=== PATIENT | male | born 1950 | race African-American/Black ===

== ENCOUNTER → 2018-05-07 | Outpatient (CLI) | payer MEDICARE, OTHER ==
--- NOTE | 2018-05-07 12:57 | RAD ---
RENAL COMPLETE BILATERAL History: History kidney stone Comparison: None. Findings: Multiple sonographic images of the kidneys and urinary bladder are submitted. Right kidney measured 11.8 x 5.9 x 5.7 cm. Left kidney measured 10.3 x 5 x 5.6 cm. There is no hydronephrosis of either kidney. There are a few small echogenic foci of the right kidney likely due to small calcifications, largest about 0.6 cm. Urinary bladder is not well distended. Impression: 1. There are likely small right renal calculi, no hydronephrosis. Electronically signed by: Fran Khan MD (05/07/2018 12:54 PM) [facility] [id number]
== END | disposition home or self-care (01) ==
LOC: US 11:00
PROVIDERS: ATTEND Family Medicine
DX: N20.0 Calculus of kidney (principal)
CPT/HCPCS: 76770

== ENCOUNTER → 2019-02-17 | Outpatient (CLI) | payer MEDICARE, OTHER ==
[~2019-02-17] MED LIST: 0.9 % SODIUM CHLORIDE 10 ML VIAL ONE; ASPI81TA50 PO; CHOL400C2 PO; EZET10TA20 PO; HYDR-2145 PO; IOHEXOL 300 MG/ML 50 ML VIAL. ONE; LIDOCAINE 1% PF 30 ML VIAL. ONE; LISI-334 PO; METO-239 PO; NIFE-11 PO; OMEP20TA8 PO; POTA20TA4 PO; SIMV20TA18 PO; methylPREDNISolone ACETATE 80 MG/ML VIAL. ONE
[2019-02-17 13:59] VITALS: BP 156/78
== END ==
LOC: SURG 11:35
PROVIDERS: ATTEND Anesthesiology Pain Medicine
DX: M54.16 Radiculopathy, lumbar region (principal); I10 Essential (primary) hypertension
CPT/HCPCS: 62323; J1040; J2001; Q9967

== ENCOUNTER → 2019-04-02 | Outpatient (CLI) | payer MEDICARE, OTHER ==
[2019-04-02 10:43] VITALS: BP 137/84
== END ==
LOC: SURG 10:26
PROVIDERS: ATTEND Anesthesiology Pain Medicine
DX: M47.816 Spondylosis without myelopathy or radiculopathy, lumbar region (principal); G89.4 Chronic pain syndrome; M51.36 Other intervertebral disc degeneration, lumbar region; Z79.01 Long term (current) use of anticoagulants
CPT/HCPCS: 62323; J1040; J2001; Q9967

== ENCOUNTER → 2019-05-07 | Outpatient (CLI) | payer MEDICARE, OTHER ==
[~2019-05-07] MED LIST changes: -0.9 % SODIUM CHLORIDE 10 ML VIAL ONE; -IOHEXOL 300 MG/ML 50 ML VIAL. ONE; -LIDOCAINE 1% PF 30 ML VIAL. ONE; -methylPREDNISolone ACETATE 80 MG/ML VIAL. ONE
[2019-05-07 14:02] VITALS: BP 113/59
== END | disposition home or self-care (01) ==
LOC: SURG 13:52
PROVIDERS: ATTEND Anesthesiology Pain Medicine
DX: M47.26 Other spondylosis with radiculopathy, lumbar region (principal); M51.16 Intervertebral disc disorders with radiculopathy, lumbar region; Z79.01 Long term (current) use of anticoagulants
CPT/HCPCS: 99213; G0463

== ENCOUNTER 2021-01-08 12:06 | Emergency (ER) | payer MEDICARE, OTHER ==
[~2021-01-08] VITALS: Ht 182.9 cm; Wt 104.7 kg
[~2021-01-08 12:06] MED LIST changes: -LISI-334 PO; +LISI20TA18 PO; +POTA-121 PO; -POTA20TA4 PO
[2021-01-08] MEDS ORDERED: ASPIRIN CHEWABLE 81 MG TABLET. PO ONE (12:30)
[2021-01-08] MEDS ORDERED: IV NORMAL SALINE 1,000ML 1,000 ML IV ONE (12:30)
--- NOTE | 2021-01-08 12:30 | EKG ---
[address] [address] Test Date: 2021-01-08 Test Time: 12:13:52 Pat Name: ELEANOR BAUER Department: Room: Gender: Toll Ticket Clerk: DIONY : 1950 Requested By: MARIANN BARNHART Order Number: [id number] Reading MD: Esequiel Martinez Measurements Intervals Celina Rate: 72 P: 30 OR: 218 QRS: -11 QRSD: 90 T: 34 QT: 390 QTc: 429 Interpretive Statements SINUS RHYTHM ATRIAL PREMATURE COMPLEX(ES) Electronically Signed On 01-15-2021 10:45:12 INSTRUCTIONAL DESIGNER by Esequiel Martinez
--- NOTE | 2021-01-08 12:32 | PHYS DOC ---
Past History Additional Past Medical Histor: hep c,herniated disk,headaches Past Surgical History: Other Additional Past Surgical Histo: lung biopsy, cyst removed chest,r hand,bilat cataracts General Adult EDM: Chief Complaint: MULTIPLE COMPLAINTS HPI: HPI: Patient is a 7-year-old male who presents to the emergency department for multiple complaints. Patient reports that he has lightheadedness that is worse with position changes and eye movements, midsternal chest pain, nausea, temporal headache that are intermittent and has been going on for 3 weeks. Patient denies any chest pain currently. He is reporting nausea and a temporal headache that he rates 7 out of 10. He states that he is taking ibuprofen at home. Patient states that this is one of the worst headaches he has ever had. He does not have a history of migraine headaches. He denies shortness of breath, vomiting, photophobia, phonophobia, cough, fevers, falls. Review of Systems: Review of Systems: 14 body systems of the review of systems have been reviewed. See HPI for pertinent positive and negative responses, otherwise all other systems are negative, nonpertinent or noncontributory Allergies: Allergies: Allergies Coded Allergies Type Severity Reaction Last Updated Verified No Known Drug Allergies 04/02/19 No Physical Exam: PE: Constitutional: Well developed, well nourished, no acute distress, non-toxic appearance. [] HENT: Normocephalic, atraumatic, bilateral external ears normal, oropharynx moist, no oral exudates, nose normal. [] Eyes: PERRL, 4 mm pupils bilaterally, dizziness reported with eye movements, EOMI, conjunctiva normal, no discharge. [] Neck: Normal range of motion, no stridor Cardiovascular:Heart rate regular rhythm, no murmur [] Lungs & Thorax: Bilateral breath sounds clear to auscultation [] Abdomen: Bowel sounds normal, soft, no tenderness, no masses, no pulsatile masses. [] Skin: Warm, dry, no erythema, no rash. [] Back: Normal range of motion Extremities: No tenderness, no cyanosis, no clubbing, ROM intact, no edema. [] Neurologic: Alert and oriented X 3, normal motor function, normal sensory function, no focal deficits noted, no pronator drift, no speech difficulties, good therapeutic dietitian strengths bilaterally, patient moves all 4 extremities equally. [] Psychologic: Affect normal, judgement normal, mood normal. [] Current Patient Data: Labs: Laboratory Tests Test 01/08/21 12:34 White Blood Count 6.5 x10^3/uL Red Blood Count 4.57 x10^6/uL Hemoglobin 13.8 g/dL Hematocrit 43.3 % Mean Corpuscular Volume 95 fL Mean Corpuscular Hemoglobin 30 pg Mean Corpuscular Hemoglobin Concent 32 g/dL Red Cell Distribution Width 13.1 % Platelet Count 182 x10^3/uL Neutrophils (%) (Auto) 48 % Lymphocytes (%) (Auto) 36 % Monocytes (%) (Auto) 9 % Eosinophils (%) (Auto) 5 % Basophils (%) (Auto) 2 % Neutrophils # (Auto) 3.1 x10^3uL Lymphocytes # (Auto) 2.4 x10^3/uL Monocytes # (Auto) 0.6 x10^3/uL Eosinophils # (Auto) 0.3 x10^3/uL Basophils # (Auto) 0.1 x10^3/uL Sodium Level 140 mmol/L Potassium Level 3.5 mmol/L Chloride Level 104 mmol/L Carbon Dioxide Level 27 mmol/L Anion Gap 9 Blood Urea Nitrogen 11 mg/dL Creatinine 0.8 mg/dL Estimated GFR (Cockcroft-Gault) 115.6 BUN/Creatinine Ratio 14 Glucose Level 108 mg/dL Calcium Level 9.3 mg/dL Total Bilirubin 0.6 mg/dL Aspartate Amino Transf (AST/SGOT) 32 U/L Alanine Aminotransferase (ALT/SGPT) 50 U/L Alkaline Phosphatase 101 U/L Troponin I High Sensitivity 19 ng/L Total Protein 7.8 g/dL Albumin 4.0 g/dL Albumin/Globulin Ratio 1.1 Current Medications Medications (Trade) Dose Ordered Sig/Morales Route PRN Reason Start Time Stop Time Status Last Admin Dose Admin Aspirin (Aspirin Chewable) 324 mg 1X ONCE PO 01/08/21 12:30 01/08/21 12:31 DC 01/08/21 12:50 Sodium Chloride 1,000 ml @ 1,000 mls/hr 1X ONCE IV 01/08/21 12:30 01/08/21 13:29 DC 01/08/21 12:49 Ibuprofen (Motrin) 600 mg 1X ONCE PO 01/08/21 12:45 01/08/21 12:47 DC 01/08/21 12:53 Vital Signs: Vital Signs Date Time Temp Pulse Resp B/P (MAP) Pulse Ox O2 Delivery O2 Flow Rate FiO2 01/08/21 12:15 98.3 70 18 155/85 (108) 99 Room Air EKG: EKG: EKG performed by ER staff at 1213 shows sinus rhythm with a rate of 72 bpm, no STEMI read by Dr. Anne at 1219 [] Radiology/Procedures: Radiology/Procedures: []PROCEDURE: PORTABLE CHEST 1V XR CHEST 1V CLINICAL INDICATIONS: Reason: chest pain / Spl. Instructions: / History: COMPARISON: None available. Findings: Small left-sided pleural effusion and associated left lung base atelectasis is seen. No pneumothorax is seen. The heart size, pulmonary vasculature, mediastinum and both elijah are unremarkable. IMPRESSION: Small left-sided pleural effusion and associated left lung base atelectasis. Electronically signed by: Yordan Gutierrez MD (01/08/2021 1:00 PM) [id number] DICTATED AND SIGNED BY: YORDAN GUTIERREZ MD DATE: 01/08/21 1259 CC: MARIANN BARNHART APRN; KIMBERLY VILLARREAL DO, MPH ~MTH0 0 PROCEDURE: CT HEAD WO CONTRAST Site ID: [id number] EXAMINATION: CT HEAD/BRAIN WO. TECHNIQUE: Noncontrast axial images of the brain were obtained with coronal and sagittal reconstructions. One or more of the following radiation dose reduction techniques was used: automated exposure control, adjustment of mA and/or KV according to patient size, and/or utilization of iterative reconstruction technique. HISTORY: 70 years Male Reason: headache, dizziness FINDINGS: There is no intracranial hemorrhage, edema or mass effect. The brain parenchyma appears unremarkable. Size of the ventricles is appropriate. The visualized portions of the orbits and paranasal sinuses appear unremarkable. IMPRESSION: Unremarkable exam. Electronically signed by: Neri Sun MD (01/08/2021 12:58 PM) [id number] DICTATED AND SIGNED BY: NERI SUN MD DATE: 01/08/21 1256 CC: MARIANN BARNHART APRN; KIMBERLY VILLARREAL DO, MPH ~MTH0 0 Heart Score: C/O Chest Pain: Yes (No chest pain reported currently) HEART Score for Chest Pain: HEART Score for Chest Pain Response (Comments) Value History Slighlty/Non-Suspicious 0 ECG Normal 0 Age > 65 2 Risk Factors 1 or 2 Risk Factors 1 Troponin < Normal Limit 0 Total 3 Risk Factors: Risk Factors: DM, Current or recent (<one month) smoker, HTN, HLP, family history of CAD, obesity. Risk Scores: Score 0 - 3: 2.5% MACE over next 6 weeks - Discharge Home Score 4 - 6: 20.3% MACE over next 6 weeks - Admit for Clinical Observation Score 7 - 10: 72.7% MACE over next 6 weeks - Early Invasive Strategies Course & Med Decision Making: Course & Med Decision Making Pertinent Labs and Imaging studies reviewed. (See chart for details) Patient presents to the emergency department for intermittent dizziness, chest pain, nausea, and headache x3 weeks. Work-up in the ER consisted of blood work, EKG, chest x-ray, CT scan of head. Chest x-ray was ordered for his complaint of chest pain. CT scan of head was reported for his severe headache with dizziness. Orthostatic vital signs obtained in the emergency department. Patient treated with IV fluids. He was also given 324 mg of aspirin. He denies any chest pain currently while in the ER. Patient was negative for orthostatic hypotension and was asymptomatic with position changes. His CT scan of his head was negative for any acute findings. Chest x-ray shows a small pleural effusion, however patient is not hypoxic. CBC and CMP were unremarkable. Patient had a negative troponin. Patient's heart score is 3 and he remained asymptomatic in the ER. Patient advised to follow-up with his primary care provider tomorrow. Celi Disclaimer: Celi Disclaimer: This electronic medical record was generated, in whole or in part, using a voice recognition dictation system. Departure Departure: Impression: Primary Impression: Atypical chest pain Disposition: HOME / SELF CARE / HOMELESS Condition: GOOD Referrals: KIMBERLY VILLARREAL DO, MPH (PCP) Patient Instructions: Chest Pain (Nonspecific), Dizziness Additional Instructions: You were seen in the emergency department today for multiple complaints including dizziness, chest pain, nausea and a headache that has been intermittent for [address] scan of your head showed no acute findings. Your chest x-ray showed no acute findings. Your cardiac enzymes were not elevated at this time. Your EKG was mostly unremarkable. It appears that at this time you are not having acute coronary syndrome. You need to follow-up with your primary care provider tomorrow regarding your ER visit. Ensure that you are drinking plenty of fluids. Slowly change positions to not cause severe dizziness and fall. If you continue to take ibuprofen for your headache. Return to the emergency department if you develop dizziness, syncope, chest pain, shortness of breath, intractable nausea or vomiting, worse headache you have ever experienced in your life or any new or worsening concerns. EMERGENCY DEPARTMENT GENERAL DISCHARGE INSTRUCTIONS Thank you for coming to [facility] (ED) today and trusting us with you care. We trust that you had a positivie experience in our Emergency Department. If you wish to speak to the department management, you may call the director at [phone]. YOUR FOLLOW UP INSTRUCTIONS ARE FOLLOWS: 1. Do you have a private Doctor? If you do not have a private doctor, please ask for a resource list of physicians or clinics that may be able to assist you with follow up care. 2. The Emergency Physician has interpreted your x-rays. The X-Ray specialist will also review them. If there is a change in the findings, you will be notified in 48 hours when at all possible. 3. A lab test or culture has been done, your results will be reviewed and you will be notified if you need a change in treatment. ADDITIONAL INSTRUCTIONS AND INFORMATION: 1. Your care today has been supervised by a physician who is specially trained in emergency care. Many problems require more than one evaluation for a complete diagnosis and treatment. We recommend that you schedule your follow up appointment as recommended to ensure complete treatment of you illness or injury. If you are unable to obtain follow up care and continue to have a problem, or if your condition worsens, we recommend that you return to the ED. 2. We are not able to safely determine your condition over the phone nor are we able to give sound medical advice over the phone. For these safety reasons, if you call for medical advice we will ask you to come to the ED for further evaluation. 3. If you have any questions regarding these discharge instructions please call the ED at [phone]. SAFETY INFORMATION: In the interest of safety, wellness, and injury prevention; we encourage you to wear your sealbelt, if you smoke; quite smoking, and we encourage family to use a protective helmet for bicycling and other sporting events that present an increased risk for head injury. IF YOUR SYMPTOMS WORSEN OR NEW SYMPTOMS DEVELOP, OR YOU HAVE CONCERNS ABOUT YOUR CONDITION; OR IF YOUR CONDITION WORSENS WHILE YOU ARE WAITING FOR YOUR FOLLOW UP APPOINTMENT; EITHER CONTACT YOUR PRIMARY CARE DOCTOR, THE PHYSICIAN WHOSE NAME AND NUMBER YOU WERE GIVEN, OR RETURN TO THE ED IMMEDIATELY. MARIANN BARNHART APRN Jan 08, 2021 12:32
[2021-01-08] MEDS ORDERED: IBUPROFEN 600 MG TABLET. PO ONE (12:45)
[2021-01-08 13:00] LABS: BASO # 0.1 x10^3/uL (0.0-0.2); BASO % 2 % (0-3); EOS # 0.3 x10^3/uL (0.0-0.7); EOS % 5 % (0-3); HEMATOCRIT 43.3 % (39.0-53.0); HEMOGLOBIN 13.8 g/dL (13.0-17.5); LYMPH # 2.4 x10^3/uL (1.0-4.8); LYMPH % 36 % (24-48); MEAN CORPUSCULAR HEMOGLOBIN 30 pg (25-35); MEAN CORPUSCULAR HGB CONC 32 g/dL (31-37); MEAN CORPUSCULAR VOLUME 95 fL (79-100); MONO # 0.6 x10^3/uL (0.0-1.1); MONO % 9 % (0-9); NEUT # 3.1 x10^3uL (1.8-7.7); NEUT % 48 % (31-73); PLATELET COUNT 182 x10^3/uL (140-400); RED BLOOD COUNT 4.57 x10^6/uL (4.30-5.70); RED CELL DISTRIBUTION WIDTH 13.1 % (11.5-14.5); WHITE BLOOD COUNT 6.5 x10^3/uL (4.0-11.0)
--- NOTE | 2021-01-08 13:00 | RAD ---
Site ID: [id number] EXAMINATION: CT HEAD/BRAIN WO. TECHNIQUE: Noncontrast axial images of the brain were obtained with coronal and sagittal reconstructi ons. One or more of the following radiation dose reduction techniques was used: automated exposure control , adjustment of mA and/or KV according to patient size, and/or utilization of iterative reconstructio n technique. HISTORY: 70 years Male Reason: headache, dizziness FINDINGS: There is no intracranial hemorrhage, edema or mass effect. The brain parenchyma appears un remarkable. Size of the ventricles is appropriate. The visualized portions of the orbits and paranasal sinuses appear unremarkable. IMPRESSION: Unremarkable exam. Electronically signed by: Jimy Sun MD (01/08/2021 12:58 PM) [id number]
--- NOTE | 2021-01-08 13:03 | RAD ---
XR CHEST 1V CLINICAL INDICATIONS: Reason: chest pain / Spl. Instructions: / History: COMPARISON: None available. Findings: Small left-sided pleural effusion and associated left lung base atelectasis is seen. No pne umothorax is seen. The heart size, pulmonary vasculature, mediastinum and both elijah are unremarkable. IMPRESSION: Small left-sided pleural effusion and associated left lung base atelectasis. Electronically signed by: Shayan Gutierrez MD (01/08/2021 1:00 PM) [id number]
[2021-01-08 13:15] LABS: CALCIUM 9.3 mg/dL (8.5-10.1); CREATININE 0.8 mg/dL (0.7-1.3); GFR 115.6; POTASSIUM 3.5 mmol/L (3.5-5.1)
[2021-01-08 13:21] LABS: ALBUMIN/GLOBULIN RATIO 1.1 (1.0-1.7); TOTAL BILIRUBIN 0.6 mg/dL (0.2-1.0); TOTAL PROTEIN 7.8 g/dL (6.4-8.2)
[2021-01-08 14:00] VITALS: BP 136/84
== END 2021-01-08 14:09 | disposition home or self-care (01) ==
LOC: ER 12:06
DX: R07.2 Precordial pain (principal); R42 Dizziness and giddiness; R51.9 Headache, unspecified
CPT/HCPCS: 36415; 70450; 71045; 80053; 84484; 85025; 93005; 96360; 99285; J7030

== ENCOUNTER → 2021-05-04 | Outpatient (CLI) | payer MEDICARE, OTHER ==
--- NOTE | 2021-05-04 17:12 | RAD ---
Exam: CT abdomen/pelvis without intravenous contrast Indication: Right flank pain for 3 weeks, history of kidney stones Comparison: None Technique: Helical CT imaging performed of the abdomen and pelvis without the use of intravenous cont rast. Sagittal and coronal reformats were obtained. One or more of the following individualized dose reduction techniques were utilized for this examinat ion: 1. Automated exposure control 2. Adjustment of the mA and/or kV according to patient size 3. Use of iterative reconstruction technique. Findings: Inherently limited evaluation without intravenous contrast. Lower chest: The lung bases are clear. Heart is normal in size. There are coronary artery calcificati ons and calcifications at the aortic annulus and aortic valve. Liver: Normal noncontrast appearance of the liver. Gallbladder/Biliary Tree: The gallbladder is surgically absent. Bile ducts are normal. Pancreas: Normal. Spleen: Normal. Adrenal Glands: Normal. Kidneys/Ureters/Bladder: Kidneys are normal in size. There is right nephrolithiasis with a calculus i n the inferior pole measuring 6 mm. No hydronephrosis. Ureters are normal. The bladder is decompresse d. Reproductive Organs: Prostate gland is normal. Stomach, small bowel, and colon: The stomach is normal. There is no small bowel obstruction. The appe ndix is normal. Mild colonic diverticulosis. No acute diverticulitis. Vasculature: The abdominal aorta is normal in caliber. The common iliac arteries are tortuous. There is moderate calcified aortoiliac atherosclerosis. Lymph Nodes: No lymphadenopathy. Peritoneum and retroperitoneum: No free fluid or free air. Bones: No acute osseous abnormality. 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 Mild degenerative disc disease, greatest at L5-S1. Miscellaneous: None IMPRESSION: 1. Right nephrolithiasis. No hydronephrosis. 2. Mild colonic diverticulosis. Electronically signed by: Elma Johnson MD (05/04/2021 5:09 PM) [id number]
== END ==
LOC: RAD 16:35
PROVIDERS: ATTEND Family Medicine Sports Medicine
DX: K57.30 Diverticulosis of large intestine without perforation or abscess without bleeding (principal); N20.0 Calculus of kidney; I25.10 Atherosclerotic heart disease of native coronary artery without angina pectoris; I70.0 Atherosclerosis of aorta; M51.37 Other intervertebral disc degeneration, lumbosacral region; M16.0 Bilateral primary osteoarthritis of hip; R10.9 Unspecified abdominal pain
CPT/HCPCS: 74176